=== PATIENT | female | born 1955 | race Two or more races ===

== ENCOUNTER 2021-02-17 11:49 | Inpatient (IN) | payer MEDICAID ==
[~2021-02-17] VITALS: Ht 154.9 cm; Wt 77.1 kg
[2021-02-17] MEDS ORDERED: METOCLOPRAMIDE HCL 10MG/2ML VIAL IV STA (12:05)
[2021-02-17] MEDS ORDERED: DICYCLOMINE 10 MG/5 ML ORAL SYR PO STA (12:05)
[2021-02-17] MEDS ORDERED: ACETAMINOPHEN 325MG TABLET PO STA (12:05)
[2021-02-17] MEDS ORDERED: MORPHINE SULFATE 4 MG/ML CPJ (NOT FOR IM USE) IV STA (12:05)
[2021-02-17] MEDS ORDERED: ONDANSETRON HCL 4MG/2ML INJ IV STA (12:05)
[2021-02-17] MEDS ORDERED: SODIUM CHLORIDE 0.9% 1,000 ML IV ONE ×2 (12:15→18:15)
[2021-02-17 12:29] LABS: HEMATOCRIT. 33.2 % (36.0-48.0); HEMOGLOBIN. 10.5 g/dL (12.0-16.0); MEAN CORPUSCULAR HEMOGLOBIN 25.2 pg (28.0-32.0); MEAN CORPUSCULAR VOLUME 79.7 fL (81.0-99.0); MEAN PLATELET VOLUME 8.2 fl (7.4-10.4); PLATELET 260 x1000/uL (130-400); RED BLOOD CELL COUNT 4.17 mill/uL (4.2-5.4); RED CELL DISTRIBUTION WIDTH 16.8 % (11.6-14.6)
[2021-02-17 12:43] LABS: CHLORIDE 100 mEq/L (98-107)
[2021-02-17 12:51] LABS: INR 1.1; PROTHROMBIN TIME 11.9 sec (9.6-11.0)
[2021-02-17 12:53] LABS: BETA HYDROXYBUTYRATE 0.3 mMol/L (0.0-0.3)
[2021-02-17 12:55] LABS: PLATELET ESTIMATE NORMAL
[2021-02-17] MEDS ORDERED: VANCOMYCIN 1 G PREMIX 200 ML IV SCH (13:30)
[2021-02-17] MEDS ORDERED: PIPERACILLIN/TAZ 3.375G PREMIX 50 ML IV ONE (13:30)
[2021-02-17] MEDS ORDERED: MAGNESIUM/ALUMINUM HYDROXIDE/SIMETHICONE 30ML UDC PO PRN (16:30)
[2021-02-17] MEDS ORDERED: ACETAMINOPHEN 325MG TABLET PO PRN (16:30)
[2021-02-17] MEDS ORDERED: DEXTROSE 50% WATER 50ML SYRINGE IV PRN (16:30)
[2021-02-17] MEDS ORDERED: ZOLPIDEM TARTRATE 5MG TABLET PO PRN (16:30)
[2021-02-17] MEDS ORDERED: DIPHENHYDRAMINE 50MG/ML VIAL IV PRN (16:30)
[2021-02-17] MEDS ORDERED: MORPHINE SULFATE 2 MG/ML CPJ (NOT FOR IM USE) IV PRN (16:30)
[2021-02-17] MEDS: SODIUM CHLORIDE 0.9% 1,000 ML IV SCH ×2 (17:21→22:12)
[2021-02-17] MEDS ORDERED: LEVOFLOXACIN 500MG PREMIX 100 ML IV NR (17:30)
[2021-02-17] MEDS: BLOOD SUGAR DIAGNOSTIC STRIP TEST SCH ×2 (17:31→20:41)
[2021-02-17] MEDS: FAMOTIDINE 20MG/2ML VIAL IV SCH (18:18)
[2021-02-17] MEDS: INSULIN LISPRO 100 UNITS/ML SUBCUT SCH ×2 (20:52→21:00)
[2021-02-17] MEDS: ENOXAPARIN 30MG/0.3ML SYR SUBCUT SCH (21:36)
[2021-02-17] MEDS: INSULIN GLARGINE UD 100 UNITS/ML SYR SUBCUT SCH (22:05)
[2021-02-17] MEDS ORDERED: CEFTRIAXONE 1 G PREMIX 50 ML IV SCH (23:00)
[2021-02-17] MEDS ORDERED: ACETAMINOPHEN 650MG SUPP PR PRN (23:30)
[2021-02-17 23:52] LABS: BG BASE EXCESS -9.3 mmol/L (-2.0-2.0); BG CARBOXYHEMOGLOBIN 0.3 % (0.5-1.5); BG DEOXYHEMOGLOBIN 5.8 % (0.0-5.0); BG HCO3 ACT 13.9 mmol/L (22.0-26.0); BG METHEMOGLOBIN 0.3 % (0.0-1.5); BG OXYGEN SATURATION 94.2 % (92.0-98.5); BG OXYHEMOGLOBIN 93.6 % (94.0-97.0); BG PCO2 22.8 mmHg (35.0-45.0); BG PH 7.403 (7.350-7.450); BG PO2 74.3 mmHg (75.0-100.0); BG SAMPLE SITE RIGHT RADIAL; BG TOTAL HEMOGLOBIN 10.1 g/dL (12.0-18.0); BG VENT MODE ROOM AIR
[2021-02-17 23:58] VITALS: BP 104/56
[2021-02-18] VITALS (80 sets, daily range): BP systolic 57–157; BP diastolic 20–132
[2021-02-18] MEDS: ONDANSETRON HCL 4MG/2ML INJ IV PRN ×3 (01:05→08:06)
[2021-02-18] MEDS: SODIUM CHLORIDE 0.9% 1,000 ML IV SCH ×3 (02:51→16:08)
[2021-02-18] MEDS: NOREPINEPHRINE 8 MG in DEXT 5% WATER 242 ML IV PRN ×2 (03:40→22:47)
[2021-02-18] MEDS: INSULIN LISPRO 100 UNITS/ML SUBCUT SCH ×4 (07:00→21:00)
[2021-02-18] MEDS: BLOOD SUGAR DIAGNOSTIC STRIP TEST SCH ×4 (07:29→21:00)
[2021-02-18 10:48] LABS: HEMATOCRIT. 28.6 % (36.0-48.0); MEAN CORPUSCULAR HEMOGLOBIN 25.4 pg (28.0-32.0); MEAN CORPUSCULAR VOLUME 81.2 fL (81.0-99.0); MEAN PLATELET VOLUME 8.8 fl (7.4-10.4); PLATELET 146 x1000/uL (130-400); RED BLOOD CELL COUNT 3.52 mill/uL (4.2-5.4); RED CELL DISTRIBUTION WIDTH 16.9 % (11.6-14.6)
[2021-02-18 10:55] LABS: CHLORIDE 107 mEq/L (98-107)
[2021-02-18 11:17] LABS: PLATELET ESTIMATE NORMAL
[2021-02-18] MEDS: ACETAMINOPHEN 325MG TABLET PO PRN (14:06)
[2021-02-18 17:02] LABS: CLARITY URINE CLOUDY (CLEAR); COLOR URINE YELLOW (YELLOW); KETONES URINE NEGATIVE (NEGATIVE); LEUKOCYTE ESTERASE URINE TRACE (NEGATIVE); NITRITE URINE NEGATIVE (NEGATIVE); OCCULT BLOOD URINE 1+ (NEGATIVE); PH URINE 6.5 (4.5-8.0); PROTEIN URINE 1+ (NEGATIVE); SPECIFIC GRAVITY URINE 1.007 (1.005-1.030); UROBILINOGEN URINE 0.2 E.U./dL (0.2-1.0)
[2021-02-18] MEDS: LEVOFLOXACIN 250MG PREMIX 50 ML IV SCH (18:55)
[2021-02-18] MEDS: ENOXAPARIN 30MG/0.3ML SYR SUBCUT SCH (18:55)
[2021-02-18] MEDS: FAMOTIDINE 20MG/2ML VIAL IV SCH (18:55)
[2021-02-18] MEDS: INSULIN GLARGINE UD 100 UNITS/ML SYR SUBCUT SCH (22:00)
[2021-02-18] MEDS: CEFTRIAXONE 1,000 MG in DEXTROSE 5% WATER 50 ML IV SCH (22:10)
[2021-02-19] VITALS (59 sets, daily range): BP systolic 70–160; BP diastolic 39–89
[2021-02-19] MEDS: ONDANSETRON HCL 4MG/2ML INJ IV PRN ×3 (03:14→18:24)
[2021-02-19] MEDS: SODIUM CHLORIDE 0.9% 1,000 ML IV SCH ×3 (03:14→20:37)
[2021-02-19] MEDS: ACETAMINOPHEN 325MG TABLET PO PRN (06:32)
[2021-02-19 06:38] LABS: CHLORIDE 112 mEq/L (98-107)
[2021-02-19 06:42] LABS: PHOSPHORUS 3.6 mg/dL (2.5-4.9)
[2021-02-19] MEDS: INSULIN LISPRO 100 UNITS/ML SUBCUT SCH ×4 (07:00→21:00)
[2021-02-19] MEDS: BLOOD SUGAR DIAGNOSTIC STRIP TEST SCH ×4 (07:13→20:44)
[2021-02-19] MEDS ORDERED: MAGNESIUM 2 G PREMIX 50 ML IV SCH (09:00)
[2021-02-19 09:50] LABS: BASOPHILS % 0.5 % (0.0-2.0); EOSINOPHILS % 2.1 % (0.0-5.0); HEMATOCRIT. 26.8 % (36.0-48.0); HEMOGLOBIN. 8.7 g/dL (12.0-16.0); LYMPHOCYTES % 11.1 % (20.0-50.0); MEAN CORPUSCULAR HEMOGLOBIN 25.9 pg (28.0-32.0); MEAN CORPUSCULAR VOLUME 79.6 fL (81.0-99.0); MEAN PLATELET VOLUME 9.2 fl (7.4-10.4); MONOCYTES % 2.3 % (2.0-8.0); PLATELET 70 x1000/uL (130-400); RED BLOOD CELL COUNT 3.37 mill/uL (4.2-5.4); RED CELL DISTRIBUTION WIDTH 17.1 % (11.6-14.6)
[2021-02-19] MEDS: FAMOTIDINE 20MG/2ML VIAL IV SCH (18:24)
[2021-02-19] MEDS: LEVOFLOXACIN 250MG PREMIX 50 ML IV SCH (18:37)
[2021-02-19] MEDS: CEFTRIAXONE 1,000 MG in DEXTROSE 5% WATER 50 ML IV SCH (21:39)
[2021-02-19] MEDS: INSULIN GLARGINE UD 100 UNITS/ML SYR SUBCUT SCH (21:40)
[2021-02-20] VITALS: BP 92/50
[2021-02-20] MEDS: ACETAMINOPHEN 325MG TABLET PO PRN ×2 (00:45→17:05)
[2021-02-20 04:00] VITALS: BP 106/60
[2021-02-20] MEDS: SODIUM CHLORIDE 0.9% 1,000 ML IV SCH (05:37)
[2021-02-20] MEDS: BLOOD SUGAR DIAGNOSTIC STRIP TEST SCH ×4 (06:31→21:26)
[2021-02-20 06:39] LABS: HEMATOCRIT. 26.8 % (36.0-48.0); HEMOGLOBIN. 8.8 g/dL (12.0-16.0); MEAN CORPUSCULAR HEMOGLOBIN 26.1 pg (28.0-32.0); MEAN CORPUSCULAR VOLUME 79.6 fL (81.0-99.0); RED BLOOD CELL COUNT 3.37 mill/uL (4.2-5.4); RED CELL DISTRIBUTION WIDTH 16.8 % (11.6-14.6)
[2021-02-20 06:59] LABS: PLATELET 46 x1000/uL (130-400)
[2021-02-20 07:09] LABS: CHLORIDE 111 mEq/L (98-107)
[2021-02-20 07:21] LABS: PHOSPHORUS 3.1 mg/dL (2.5-4.9)
[2021-02-20] MEDS: INSULIN LISPRO 100 UNITS/ML SUBCUT SCH ×4 (07:38→21:00)
[2021-02-20 08:00] VITALS: BP 102/64
[2021-02-20] MEDS ORDERED: CLONIDINE 0.1MG TABLET PO PRN (09:15)
[2021-02-20] MEDS ORDERED: POTASSIUM CHLORIDE 20MEQ TABLET SR PO SCH (09:30)
[2021-02-20] MEDS ORDERED: POTASSIUM CHLORIDE 20MEQ TABLET SR PO ONE (09:45)
[2021-02-20 10:06] LABS: PLATELET ESTIMATE MARKEDLY DECREASED
[2021-02-20 12:00] VITALS: BP 129/81
[2021-02-20] MEDS ORDERED: POTASSIUM CHLORIDE 20MEQ TABLET SR PO NR ×2 (12:00→14:00)
[2021-02-20] MEDS: ONDANSETRON HCL 4MG/2ML INJ IV PRN (15:18)
[2021-02-20 16:00] VITALS: BP 156/90
[2021-02-20] MEDS: LEVOFLOXACIN 250MG PREMIX 50 ML IV SCH (17:03)
[2021-02-20] MEDS ORDERED: POTASSIUM CHLORIDE INJ 40 MEQ in DEXT 5% WATER 250 ML IV NR (18:00)
[2021-02-20 20:00] VITALS: BP 117/69
[2021-02-20] MEDS: INSULIN GLARGINE UD 100 UNITS/ML SYR SUBCUT SCH (21:26)
[2021-02-20] MEDS: CEFTRIAXONE 1,000 MG in DEXTROSE 5% WATER 50 ML IV SCH (23:14)
[2021-02-21] VITALS: BP 120/83
[2021-02-21 04:00] VITALS: BP 130/76
[2021-02-21 07:01] LABS: BASOPHILS % 0.3 % (0.0-2.0); EOSINOPHILS % 2.3 % (0.0-5.0); HEMOGLOBIN. 10.1 g/dL (12.0-16.0); LYMPHOCYTES % 10.7 % (20.0-50.0); MEAN CORPUSCULAR HEMOGLOBIN 26.1 pg (28.0-32.0); MEAN CORPUSCULAR VOLUME 82.4 fL (81.0-99.0); MEAN PLATELET VOLUME 9.9 fl (7.4-10.4); MONOCYTES % 3.2 % (2.0-8.0); NEUTROPHILS % 83.5 % (40.0-76.0); PLATELET 53 x1000/uL (130-400); RED BLOOD CELL COUNT 3.89 mill/uL (4.2-5.4); RED CELL DISTRIBUTION WIDTH 17.8 % (11.6-14.6)
[2021-02-21 07:03] LABS: CHLORIDE 115 mEq/L (98-107)
[2021-02-21 07:19] LABS: PHOSPHORUS 3.2 mg/dL (2.5-4.9)
[2021-02-21] MEDS: BLOOD SUGAR DIAGNOSTIC STRIP TEST SCH ×4 (07:20→21:24)
[2021-02-21 08:00] VITALS: BP 135/84
[2021-02-21] MEDS: INSULIN LISPRO 100 UNITS/ML SUBCUT SCH ×4 (08:42→21:27)
[2021-02-21] MEDS ORDERED: SODIUM BICARBONATE 5MEQ SYR 150 MEQ in DEXTROSE 5% WATER 1,000 ML IV SCH (10:00)
[2021-02-21 10:13] LABS: BG BASE EXCESS -11.6 mmol/L (-2.0-2.0); BG CARBOXYHEMOGLOBIN 0.3 % (0.5-1.5); BG FRACTION INSPIRED OXYGEN 21; BG METHEMOGLOBIN 0.3 % (0.0-1.5); BG OXYHEMOGLOBIN 91.4 % (94.0-97.0); BG PCO2 21.5 mmHg (35.0-45.0); BG PH 7.366 (7.350-7.450); BG PO2 64.7 mmHg (75.0-100.0); BG SAMPLE SITE RIGHT BRACHIAL; BG TOTAL HEMOGLOBIN 10.4 g/dL (12.0-18.0); BG VENT MODE ROOM AIR
[2021-02-21 12:00] VITALS: BP 130/70
[2021-02-21] MEDS ORDERED: BISACODYL 10MG SUPP PR ONE (13:00)
[2021-02-21] MEDS ORDERED: BISACODYL 10MG SUPP PR NR (13:30)
[2021-02-21 16:00] VITALS: BP 108/66
[2021-02-21] MEDS: LEVOFLOXACIN 250MG PREMIX 50 ML IV SCH (17:44)
[2021-02-21] MEDS ORDERED: NALOXONE HCL 0.4MG/ML VIAL IV PRN (18:45)
[2021-02-21 20:00] VITALS: BP 130/77
[2021-02-21] MEDS: INSULIN GLARGINE UD 100 UNITS/ML SYR SUBCUT SCH (21:30)
[2021-02-22] VITALS: BP 122/69
[2021-02-22 04:00] VITALS: BP 133/70
[2021-02-22] MEDS: BLOOD SUGAR DIAGNOSTIC STRIP TEST SCH ×2 (06:42→12:27)
[2021-02-22 06:56] LABS: CHLORIDE 109 mEq/L (98-107)
[2021-02-22 07:05] LABS: PHOSPHORUS 3.2 mg/dL (2.5-4.9)
[2021-02-22 08:00] VITALS: BP 130/80
[2021-02-22] MEDS: INSULIN LISPRO 100 UNITS/ML SUBCUT SCH ×2 (09:00→12:40)
[2021-02-22 10:00] LABS: HEMATOCRIT. 27.6 % (36.0-48.0); HEMOGLOBIN. 9.2 g/dL (12.0-16.0); MEAN CORPUSCULAR HEMOGLOBIN 25.6 pg (28.0-32.0); MEAN PLATELET VOLUME 9.9 fl (7.4-10.4); PLATELET 73 x1000/uL (130-400); RED BLOOD CELL COUNT 3.58 mill/uL (4.2-5.4); RED CELL DISTRIBUTION WIDTH 17.6 % (11.6-14.6)
[2021-02-22] MEDS ORDERED: POTASSIUM CHLORIDE 20MEQ TABLET SR PO NR ×2 (10:15→14:00)
[2021-02-22 10:18] LABS: MEAN CORPUSCULAR VOLUME 77.1 fL (81.0-99.0)
[2021-02-22 10:50] LABS: PLATELET ESTIMATE DECREASED
[2021-02-22] MEDS ORDERED: MAGNESIUM 2 G PREMIX 50 ML IV NR (11:00)
[2021-02-22 12:00] VITALS: BP 124/73
[2021-02-22 16:00] VITALS: BP 113/66
[2021-02-22 17:19] VITALS: BP 113/66
[2021-02-22] MEDS ORDERED: LEVOFLOXACIN 250MG TABLET PO SCH (18:00)
== END 2021-02-22 18:11 | disposition home or self-care (01) | DRG 720 ==
LOC: ER 12:44 → 5EST 15:24 → EDBEDREQTM 19:45 → EDBEDREQSVC 19:45 → EDBEDREQTM 22:58 → EDBEDREQSVC 22:58 → ENRESERV 23:00 → MICUNO 02-18 04:16 → 6EST 02-19 14:11
PROVIDERS: ADMIT Internal Medicine; ATTEND Internal Medicine
DX: A41.51 Sepsis due to Escherichia coli [E. coli] (principal); N17.0 Acute kidney failure with tubular necrosis; R65.21 Severe sepsis with septic shock; D69.6 Thrombocytopenia, unspecified; N13.6 Pyonephrosis; D64.9 Anemia, unspecified; E11.22 Type 2 diabetes mellitus with diabetic chronic kidney disease; E78.5 Hyperlipidemia, unspecified; K76.0 Fatty (change of) liver, not elsewhere classified; K82.4 Cholesterolosis of gallbladder; M19.90 Unspecified osteoarthritis, unspecified site; Z20.822 Contact with and (suspected) exposure to COVID-19; I12.9 Hypertensive chronic kidney disease with stage 1 through stage 4 chronic kidney disease, or unspecified chronic kidney disease; N18.9 Chronic kidney disease, unspecified; Z56.0 Unemployment, unspecified; Z82.49 Family history of ischemic heart disease and other diseases of the circulatory system; Z79.4 Long term (current) use of insulin
CPT/HCPCS: 36415; 36600; 71045; 74176; 76700; 76770; 80053; 81003; 82010; 82375; 82805; 82962; 83036; 83605; 83735; 83880; 84100; 84484; 85025; 87077; 87186; 87426; 93005; 99291; C1893; J0696; J1650; J1815; J1956; J2270; J2405; J2543; J3370; J3475; J3480; J3490; J7030; J7060; J7070; A4315